=== PATIENT | male | born 1995 | race Caucasian/White ===

== ENCOUNTER 2020-07-01 06:50 | Emergency (ER) | payer MEDICAID ==
[~2020-07-01] VITALS: Ht 170.2 cm; Wt 85.7 kg
--- NOTE | ~2020-07-01 | EMS ---
[facility] [address] [place] [address] EMS Patient Care Report Name: GURPREET CREWS [id number] Admission: 07/01/20 Attend Phys: Discharge: Date of : [birth year] Report #: [id number] THIS REPORT FOR: //name// Report Transmitted: 07/01/2020 06:34 EMS Care Summary TAMIKA MCKEE Incident [id number] @ 07/01/2020 05:57 Incident Location [address] [place] [address] RAFI Yun [address] Patient VERONICA CREWS Male, 24 Years 1995 Patient Address [address] [place] [address] RAFI Yun [address] Patient History Past Traumatic Brain Injury,Edema,Schizoaffective Disorder, Patient Allergies No known allergies, Chief Complaint Ingestion Disposition Transported No Lights/[place] Dispatch Reason Breathing Problem Transported To [facility] Narrative Dispatched to address noted for shortness of breath and possible drug use. [facility] en route and staged at time noted. Arrived after [employer] and found a male patient standing with some family members and the patient was talking with [employer]. Patient appeared to be in a manic state and was not making any sense. Patient wanted to go to the hospital for his anxiety. Family stated that they believe he used meth tonight and is now not making any sense. Patient was able to walk [facility] [address] [place] [address] EMS Patient Care Report Name: GURPREET CREWS Room: [facility]#: [id number] Admission: 07/01/20 Attend Phys: Discharge: Date of : [birth year] Report #: [id number] to ambulance, close by and was assisted in. Patient had no complaints of pain and stated that he just felt very anxious. Patient admitted to meth use and stated that he has not been using meth very long. He stated no SI or HI thought but did appear to be having auditory hallucinations. Vitals where taken as noted with 4 lead. Patient requested the closest facility and [facility] was on high volume. [facility] was chosen. While en route, patient was moving all around and unable to sit still. Patient was cooperative but it took a delay in time to follow command. Radio report was given at time noted. Arrived and took patient to room 18. Patient was moved to bed and RN was given verbal report. RN signed for patient and patient care. END REPORT EMT-P Deuce Henao Initial Vitals @06:26SpO2: 99, @06:27SpO2: 99, @06:26P: 123,R: 16,BP: 156/103, @06:40P: 73,R: 15,BP: 150/117, @06:26GCS: 14, @06:40GCS: 14, @06:04 Assessments @06:04MENTAL:SKIN:HEENT:LUNG SOUNDS:ABDOMEN:PELVIS//GI:EXTREMITIES:PULSE:NEURO: Impression Other stimulant use, unspecified with intoxication Timeline 05:57,Call Received 05:57,Dispatch Notified 05:57,Psap Call 05:57,Dispatched 05:57,En Route 06:03,On Scene 06:04,At Patient 06:04,BP: / M,PULSE: ,RR: R,SPO2: Ox,ETCO2: ,BG: ,PAIN: ,GCS: , 06:26,BP: / M,PULSE: ,RR: R,SPO2: 99 Ox,ETCO2: ,BG: ,PAIN: ,GCS: , 06:26,BP: 156/103 M,PULSE: 123,RR: 16 R,SPO2: Ox,ETCO2: ,BG: ,PAIN: ,GCS: , 06:26,BP: / M,PULSE: ,RR: R,SPO2: Ox,ETCO2: ,BG: ,PAIN: ,GCS: 14, 06:27,BP: / M,PULSE: ,RR: R,SPO2: 99 Ox,ETCO2: ,BG: ,PAIN: ,GCS: , 06:30,Depart Scene 06:40,BP: 150/117 M,PULSE: 73,RR: 15 R,SPO2: Ox,ETCO2: ,BG: ,PAIN: ,GCS: , 06:40,BP: / M,PULSE: ,RR: R,SPO2: Ox,ETCO2: ,BG: ,PAIN: ,GCS: 14, 06:48,[place] [address] EMS Patient Care Report Name: GURPREET CREWS [id number] Admission: 07/01/20 Attend Phys: Discharge: Date of : [birth year] Report #: [id number] 06:57,Call Closed Disclaimer [email or web address] Copyright 2020 [employer] This EMS Care Summary contains data elements from the applicable legal record (which may be displayed differently). It is designed to provide pertinent information for the following purposes: continuity of care, clinical quality, and state data reporting. The complete legal record is available to ED staff and administrators of the receiving hospital in [employer] Patient Tracker. All data is provided "as is."
[2020-07-01 07:42] LABS: ABSOLUTE EOSINOPHILS 0.1 thou/uL (0.0-0.7); ABSOLUTE MONOCYTES 0.9 thou/uL (0.0-1.2); BASOPHILS 0.2 %; EOSINOPHILS 0.3 %; HEMATOCRIT 43.4 % (42.0-52.0); HEMOGLOBIN 15.5 gm/dL (14.0-18.0); LYMPHOCYTES 18.8 %; MCH 29.8 pg (26.0-34.0); MCHC 35.6 g/dL (28.0-37.0); MCV 83.7 fL (80.0-100.0); MONOCYTES 5.6 %; MPV 10.4 fl. (7.2-11.1); NUCLEATED RBCS 0 /100WBC; PLATELET COUNT* 294 thou/uL (150-400); POLYS 75.1 %; RBC 5.19 mil/uL (4.50-6.00); RDW-CV 13.7 % (10.5-14.5)
[2020-07-01 07:51] LABS: CALCIUM 9.3 mg/dL (8.5-10.1); CREATININE 1.4 mg/dL (0.6-1.3); POTASSIUM 3.8 mmol/L (3.5-5.1)
[2020-07-01 07:55] LABS: ALBUMIN 4.3 g/dL (3.4-5.0); TOTAL BILIRUBIN 0.5 mg/dL (<0.1-1.0); TOTAL PROTEIN 7.9 g/dL (6.4-8.2)
[2020-07-01 08:01] LABS: URINE BILIRUBIN NEGATIVE (Negative); URINE BLOOD NEGATIVE (Negative); URINE CLARITY CLEAR; URINE COLOR YELLOW; URINE GLUCOSE-RANDOM NEGATIVE (Negative); URINE KETONES 3+ (Negative); URINE LEUKOCYTES-REFLEX NEGATIVE (Negative); URINE NITRITE-REFLEX NEGATIVE (Negative); URINE PROTEIN NEGATIVE (Negative); URINE UROBILINOGEN 0.2 E.U./dl (0.2-1.0)
[2020-07-01 08:10] LABS: AMP/METHAMP POSITIVE (Negative); BARBITURATES Negative (Negative); BENZODIAZEPINES Negative (Negative); COCAINE Negative (Negative); METHADONE Negative (Negative); OPIATES Negative (Negative); PCP Negative (Negative); THC POSITIVE (Negative)
[2020-07-01 09:21] LABS: ACETAMINOPHEN < 2 ug/mL (10-30); ALCOHOL < 10 mg/dL (<10); SALICYLATE < 2.8 mg/dL (2.8-20.0)
--- NOTE | 2020-07-01 10:21 | EKG ---
[place] [address] ELECTROCARDIOGRAM REPORT Name: GURPREET CREWS Room: [facility]#: [id number] Admission: 07/01/20 Attend Phys: Discharge: Date of : 89 Date of Service: 07/01/2058 Report #: [id number] THIS REPORT FOR: //name// [facility] ED Test Date: 2020-07-01 Test Time: 06:58:21 Pat Name: GURPREET CREWS Department: Room: Gender: Rural Car[employer] Associate: : 1995 Requested By: Frandy Puente Order Number: [id number] Mehreen MD: Vinnie Wolfe Measurements Intervals [place] Rate: 99 P: 81 CO: 146 QRS: 56 QRSD: 79 T: 68 QT: 318 QTc: 408 Interpretive Statements Sinus rhythm baseline artifact ST elev, probable normal early repol pattern No previous ECG available for comparison Electronically Signed On 07-01-2020 10:20:53 CDT by Vinnie Wolfe [email or web address] <ELECTRONICALLY SIGNED> By: Vinnie Wolfe MD, [facility] 07/01/20 1020 [id number] Vinnie Wolfe MD, FACC /EPI
[2020-07-01 10:25] VITALS: BP 142/71
== END 2020-07-01 10:26 | disposition home or self-care (01) ==
LOC: M.ERS 06:50
PROVIDERS: Family Medicine
DX: F24 Shared psychotic disorder (principal)